=== PATIENT | male | born 1985 | race Caucasian/White ===

== ENCOUNTER 2016-09-08 21:25 | Emergency (ER) | payer OTHER ==
[~2016-09-08] VITALS: Ht 170.2 cm; Wt 65.0 kg
[~2016-09-08 21:25] MED LIST: IBUP600 PO; LEVA500T PO
[2016-09-08 21:45] VITALS: BP 126/69; PULSE 58; RESP 18; TEMP 98.6; O2SAT 99
== END 2016-09-08 23:27 | disposition left against medical advice (07) ==
LOC: PHED 21:25
DX: M54.2 Cervicalgia (principal)
CPT/HCPCS: 99281

== ENCOUNTER 2016-09-10 18:45 | Emergency (ER) | payer OTHER ==
[~2016-09-10] VITALS: Ht 170.2 cm; Wt 66.7 kg
[2016-09-10 19:01] VITALS: BP 124/75; PULSE 61; RESP 16; TEMP 98; O2SAT 99
[2016-09-10] MEDS ORDERED: ORPHENADRINE INJ 60 MG/2 ML AMP IM ONE (20:00)
[2016-09-10] MEDS ORDERED: DEXAMETHASONE SOD PHOS 20 MG/5 ML VIAL IM ONE (20:00)
[2016-09-10] MEDS ORDERED: KETOROLAC TROMETHAMINE 60 MG/2 ML (IM) VIAL IM ONE (20:00)
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
[2016-09-10] MEDS ORDERED: CYCL1TAB29 PO (21:12)
[2016-09-10] MEDS ORDERED: IBUP800T23 PO (21:12)
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
[2016-09-10 21:29] VITALS: BP 110/67
== END 2016-09-10 21:30 | disposition home or self-care (01) ==
LOC: PHED 18:45 → PHEFT 21:30
DX: S46.912A Strain of unspecified muscle, fascia and tendon at shoulder and upper arm level, left arm, initial encounter (principal); V49.49XA Driver injured in collision with other motor vehicles in traffic accident, initial encounter; Y92.410 Unspecified street and highway as the place of occurrence of the external cause; F17.210 Nicotine dependence, cigarettes, uncomplicated
CPT/HCPCS: 73030; 96372; 99283; J1100; J1885; J2360

== ENCOUNTER 2018-02-04 15:47 | Inpatient (IN) | payer SELFPAY ==
[~2018-02-04] VITALS: Ht 170.2 cm; Wt 70.0 kg
[~2018-02-04 15:47] MED LIST changes: +CYCL10TA PO; +IBUP1TAB7 PO
[2018-02-04 16:11] VITALS: BP 135/82; PULSE 76; RESP 12; TEMP 98; O2SAT 100
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
[2018-02-04 16:30] VITALS: O2SAT 100
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
[2018-02-04] MEDS ORDERED: PROPOFOL 200 MG/20 ML AMP IV ONE ×2 (16:45→17:45)
[2018-02-04 17:00] VITALS: O2SAT 100
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
[2018-02-04] MEDS ORDERED: ACETAMINOPHEN 1000 MG/100 ML 100 ML IV ONE (17:30)
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
--- NOTE | 2018-02-04 17:48 | RADRPT ---
EXAM DATE: 02/04/2018 5:44 PM EDT AGE/SEX: 32 years / Male INDICATIONS: Pain in ankle from fall. CLINICAL DATA: This is the patient's initial encounter. Patient reports that signs and symptoms have been present for 1 day and indicates a pain score of 10/10. MEDICAL/SURGICAL HISTORY: None. None. COMPARISON: [facility], ANKLE RIGHT COMPLETE ([id number]), 02/04/2018. . FINDINGS: 3 views of the right ankle were performed with splint material in place. Again seen is a fracture inv olving the distal fibular metaphysis. There is medial displacement of the tibia and fibula relative t o the talar dome. The appearance is unchanged from the prior exam. No tibial fracture appreciated. CONCLUSION: Unchanged dislocation at the ankle joint with acute distal fibular fracture. Electronically signed by: Naveen Curran MD 02/04/2018 5:47 PM EDT
[2018-02-04] MEDS ORDERED: ACETAMINOPHEN 325 MG TAB PO PRN (18:00)
[2018-02-04] MEDS ORDERED: NALOXONE HCL 0.4 MG/ML AMP IV PUSH PRN (18:00)
[2018-02-04] MEDS ORDERED: METOCLOPRAMIDE HCL 10 MG/2 ML VIAL IV PUSH PRN (18:00)
[2018-02-04] MEDS ORDERED: SODIUM CHLORIDE 0.9% FLUSH 10 ML FLUSH IV FLUSH PRN (18:00)
[2018-02-04] MEDS ORDERED: MAGNESIUM HYDROXIDE SUSP 30 ML CUP PO PRN (18:00)
[2018-02-04] MEDS ORDERED: KETOROLAC TROMETHAMINE 30 MG/ML (IVP) VIAL IV PUSH ONE ×2 (18:15→21:15)
[2018-02-04 18:38] LABS: AUTOMATED NEUTROPHIL # 9.4 TH/MM3 (1.8-7.7); BASOPHIL % 0.2 % (0.0-2.0); EOSINOPHIL # 0.1 TH/MM3 (0-0.4); EOSINOPHIL % 0.6 % (0.0-4.0); HEMATOCRIT 43.1 % (39.0-51.0); HEMOGLOBIN 14.7 GM/DL (13.0-17.0); LYMPHOCYTE # 1.5 TH/MM3 (1.0-4.8); MEAN CELL VOLUME 85.2 FL (80.0-100.0); MEAN CORPUSCULAR HGB CONC 34.1 % (32.0-36.0); MEAN PLATELET VOLUME 8.1 FL (7.0-11.0); MONO % 4.2 % (0.0-8.0); MONOCYTE # 0.5 TH/MM3 (0-0.9); PLATELET COUNT 255 TH/MM3 (150-450); RED BLOOD COUNT 5.06 MIL/MM3 (4.50-5.90); RED CELL DISTRIBUTION WIDTH 14.2 % (11.6-17.2); WHITE BLOOD COUNT 11.5 TH/MM3 (4.0-11.0)
[2018-02-04 18:51] LABS: PROTHROMBIN TIME - PATIENT 10.4 SEC (9.8-11.6)
[2018-02-04 19:08] LABS: BICARBONATE 24.7 MEQ/L (21.0-32.0); CALCIUM 8.7 MG/DL (8.5-10.1); CREATININE 0.99 MG/DL (0.60-1.30)
[2018-02-04 20:20] VITALS: BP 152/88; PULSE 73; RESP 20; TEMP 98; O2SAT 98
[2018-02-04] MEDS: REMOVE OLD PATCH T-DERMAL SCH (21:00)
[2018-02-04] MEDS ORDERED: SODIUM CHLORID 0.9% 500 ML IV PRN (21:00)
[2018-02-04] MEDS: SODIUM CHLORIDE 0.9% FLUSH 10 ML FLUSH IV FLUSH SCH (21:00)
[2018-02-04] MEDS ORDERED: METOPROLOL TARTRATE 25 MG TAB PO PRN (21:00)
[2018-02-04] MEDS ORDERED: CHLORHEXIDINE GLUCONATE 2 % 1 PACK (2 CLOTHS) TOPICAL PRN (21:00)
[2018-02-04] MEDS ORDERED: POVIDONE IODINE 5% (ANTISEPSIS KIT) 4 APPLICATIONS EACH NARE PRN (21:00)
[2018-02-04] MEDS ORDERED: LACTATED RINGER'S 1000 ML IV PRN (21:00)
[2018-02-04] MEDS: MELATONIN 5 MG TAB PO PRN (23:55)
[2018-02-04] MEDS: diphenhydrAMINE HCL 25 MG CAP PO PRN (23:55)
[2018-02-04] MEDS: traMADol HCL 50 MG TAB PO PRN (23:55)
[2018-02-04] MEDS: ACETAMINOPHEN 1000 MG/100 ML 100 ML IV SCH (23:55)
[2018-02-05 00:05] VITALS: BP 127/79; PULSE 54; RESP 20; TEMP 98.2; O2SAT 98
[2018-02-05 04:00] VITALS: BP 119/68; PULSE 51; RESP 20; TEMP 97.8; O2SAT 98
[2018-02-05] MEDS: traMADol HCL 50 MG TAB PO PRN ×3 (04:24→21:54)
[2018-02-05] MEDS: ACETAMINOPHEN 1000 MG/100 ML 100 ML IV SCH ×3 (04:24→17:22)
[2018-02-05] MEDS ORDERED: LIDOCAINE HCL 2% 20 ML VIAL ONE ×2 (06:42→07:03)
[2018-02-05] MEDS ORDERED: KETAMINE HCL 500 MG/10 ML VIAL ONE (06:43)
[2018-02-05] MEDS ORDERED: PROPOFOL 500 MG/50 ML INJ 100 ML ONE (06:44)
[2018-02-05] MEDS ORDERED: DEXMEDETOMIDINE HCL 200 MCG/2 ML VIAL ONE (06:44)
[2018-02-05] MEDS ORDERED: AMMONIA AROMATIC INHALANT 0.33 ML ONE (06:58)
[2018-02-05] MEDS ORDERED: BUPIVACAINE HCL PF 0.5% 30 ML VIAL ONE (06:58)
[2018-02-05] MEDS ORDERED: GENTAMICIN SULFATE 80 MG/2 ML VIAL ONE (06:59)
[2018-02-05] MEDS ORDERED: ceFAZolin INJ 1,000 MG VIAL ONE (07:00)
[2018-02-05] MEDS ORDERED: VANCOMYCIN HCL 1000 MG VIAL ONE (07:55)
[2018-02-05] MEDS ORDERED: SODIUM CHLOR 0.9% 250 ML INJ 250 ML ONE (07:55)
[2018-02-05] MEDS ORDERED: ceFAZolin 2 GM PREMIX 50 ML ONE (07:55)
[2018-02-05] MEDS ORDERED: diphenhydrAMINE HCL 25 MG CAP PO PRN (08:15)
[2018-02-05] MEDS ORDERED: PHARMACY INFORMATION XX ONE (08:15)
[2018-02-05] MEDS ORDERED: Post-op Orders (for Pharmacy) XX ONE (08:15)
[2018-02-05] MEDS ORDERED: NURSING INFORMATION XX PRN (08:15)
[2018-02-05] MEDS ORDERED: ASPI81CH6 CHEW (08:25)
[2018-02-05] MEDS: DOCUSATE SODIUM 50 MG/SENNA 8.6 MG TAB PO SCH ×2 (09:00→20:50)
[2018-02-05] MEDS: MULTIVITAMINS/MINERALS THERAPEUTIC TAB PO SCH (09:00)
[2018-02-05] MEDS: NICOTINE 21 MG/24 HR PATCH T-DERMAL SCH (09:00)
[2018-02-05] MEDS: SODIUM CHLORIDE 0.9% FLUSH 10 ML FLUSH IV FLUSH SCH ×2 (09:00→20:50)
--- NOTE | 2018-02-05 10:02 | RADRPT ---
EXAM DATE: 02/05/2018 9:54 AM EDT AGE/SEX: 32 years / Male INDICATIONS: ORIF right ankle. CLINICAL DATA: This is the patient's initial encounter. Patient reports that signs and symptoms have been present for 1 day and indicates a pain score of Nonresponsive. MEDICAL/SURGICAL HISTORY: Non-responsive. Non-responsive. Abdominal aortic aneurysm repair. COMPARISON: [facility], ANKLE RIGHT COMPLETE ([id number]), 02/04/2018. . FINDINGS: 2 spot images obtained in the operating room during a procedure demonstrates placement of a lateral f ibular sideplate with multiple interlocking screws and 2 syndesmotic screws. A single lag screw is pr esent. Ankle mortise is intact and there is improved alignment. CONCLUSION: Improved alignment following right ankle ORIF. Electronically signed by: Ryland Rodgers MD 02/05/2018 10:01 AM EDT
[2018-02-05] MEDS ORDERED: MIDAZOLAM HCL 2 MG/2 ML VIAL ONE (10:15)
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
[2018-02-05] MEDS: DEXT 5%-NACL 0.45% 1000 ML INJ 1,000 ML IV SCH ×2 (10:20→19:00)
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
[2018-02-05] MEDS ORDERED: GLYCOPYRROLATE 0.2 MG/ML VIAL ONE (11:01)
[2018-02-05] MEDS ORDERED: GLYCOPYRROLATE 0.2 MG/ML VIAL IV ONE (11:30)
[2018-02-05] MEDS ORDERED: DO NOT ADM ANY ANTICOAGULANT DRUGS PRN (11:45)
[2018-02-05 12:00] VITALS: BP 118/71; PULSE 75; RESP 18; TEMP 97; O2SAT 96
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
[2018-02-05] MEDS ORDERED: LIDOCAINE HCL 1% PF 5 ML SYRINGE OTHER ONE (14:35)
[2018-02-05] MEDS ORDERED: ROCURONIUM INJ 50 MG/5 ML SYRINGE IV PUSH ONE (14:35)
[2018-02-05] MEDS ORDERED: DEXAMETHASONE SOD PHOS 4 MG/ML VIAL IV ONE (14:35)
[2018-02-05] MEDS ORDERED: NEOSTIGMINE 5 MG/5 ML SYRINGE IV PUSH ONE (14:35)
[2018-02-05] MEDS ORDERED: ePHEDrine/NS 25 MG/5 ML SYRINGE IV ONE (14:35)
[2018-02-05] MEDS ORDERED: ONDANSETRON HCL 4 MG/2 ML VIAL IV PUSH ONE (14:35)
[2018-02-05] MEDS ORDERED: PROPOFOL 200 MG/20 ML AMP IV ONE (14:35)
[2018-02-05] MEDS ORDERED: KETOROLAC TROMETHAMINE 30 MG/ML (IVP) VIAL IV PUSH ONE ×2 (14:35→21:15)
[2018-02-05] MEDS ORDERED: GLYCOPYRROLATE 1 MG/5 ML SYRINGE IV PUSH ONE (14:35)
[2018-02-05 16:07] VITALS: BP 111/62; PULSE 85; RESP 17; TEMP 98.2; O2SAT 98
[2018-02-05 20:00] VITALS: BP 123/57; PULSE 72; RESP 17; TEMP 98.5; O2SAT 98
[2018-02-05] MEDS: REMOVE OLD PATCH T-DERMAL SCH (20:52)
[2018-02-06] MEDS ORDERED: ACETAMINOPHEN 325 MG TAB PO PRN
[2018-02-06 00:01] VITALS: BP 124/70; PULSE 77; RESP 18; TEMP 98.4; O2SAT 98
[2018-02-06] MEDS: diphenhydrAMINE HCL 25 MG CAP PO PRN (01:29)
[2018-02-06] MEDS: MELATONIN 5 MG TAB PO PRN (01:29)
[2018-02-06] MEDS: traMADol HCL 50 MG TAB PO PRN ×2 (01:32→09:09)
[2018-02-06 04:00] VITALS: BP 111/57; PULSE 61; RESP 17; TEMP 98; O2SAT 98
[2018-02-06] MEDS: DEXT 5%-NACL 0.45% 1000 ML INJ 1,000 ML IV SCH (04:55)
[2018-02-06 05:59] LABS: HEMATOCRIT 39.4 % (39.0-51.0); HEMOGLOBIN 13.4 GM/DL (13.0-17.0)
[2018-02-06 08:04] VITALS: BP 102/55; PULSE 82; RESP 17; TEMP 98.4; O2SAT 98
[2018-02-06] MEDS: DOCUSATE SODIUM 50 MG/SENNA 8.6 MG TAB PO SCH (09:00)
[2018-02-06] MEDS: MULTIVITAMINS/MINERALS THERAPEUTIC TAB PO SCH (09:09)
[2018-02-06] MEDS: NICOTINE 21 MG/24 HR PATCH T-DERMAL SCH (09:13)
[2018-02-06] MEDS: SODIUM CHLORIDE 0.9% FLUSH 10 ML FLUSH IV FLUSH SCH (09:14)
--- NOTE | 2018-02-06 10:30 | PD.ORT.PN ---
Subjective Post Op Day #: 1 Subjective Remarks painful but tolerable Objective Vitals Vital Signs Date Time Temp Pulse Resp B/P (MAP) Pulse Ox O2 Delivery O2 Flow Rate FiO2 02/06/18 10:09 18 02/06/18 08:04 98.4 82 17 102/55 (71) 98 02/06/18 04:00 98.0 61 17 111/57 (75) 98 02/06/18 00:01 98.4 77 18 124/70 (88) 98 02/05/18 22:23 Room Air 02/05/18 22:02 18 02/05/18 20:00 98.5 72 17 123/57 (79) 98 02/05/18 17:52 18 02/05/18 16:07 98.2 85 17 111/62 (78) 98 02/05/18 12:00 97.0 75 18 118/71 (87) 96 02/05/18 11:10 68 22 99 Room Air 02/05/18 11:00 97.9 50 23 99/59 (72) 99 Room Air 02/05/18 10:45 55 20 110/68 (82) 100 Room Air 02/05/18 10:30 47 18 99/59 (72) 100 Nasal Cannula 2 I/O 02/05/18 02/05/18 02/05/18 02/06/18 02/06/18 02/06/18 07:00 15:00 23:00 07:00 15:00 23:00 Intake Total 620 ml 107 ml 960 ml Output Total 50 ml 900 ml Balance 620 ml 57 ml 60 ml Intake Oral 420 ml 10 ml 960 ml IV Total 200 ml 97 ml Output Urine Total 0 ml 900 ml Estimated Blood Loss 50 ml # Voids 1 0 3 Result Diagram: 02/06/18 0507 02/04/18 1750 Objective Remarks in bed, nad splint intact, leg elevate nvi sensation intact Assessment & Plan Ortho Post Op Day #: 1 Problem List: Assessment and Plan s/p ORIF R ankle with repair of syndesmosis NWB maintain splint asa 81 f/up dr. reyes 2 weeks ortho stable for d/c Daryl Santo Feb 06, 2018 10:30
[2018-02-06 12:17] VITALS: BP 127/75; PULSE 86; RESP 18; TEMP 98.7; O2SAT 98
[2018-02-06] MEDS ORDERED: TRAM50 PO (13:25)
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
[2018-02-06] MEDS ORDERED: PERC5TAB12 PO (21:57)
== END 2018-02-06 14:36 | disposition home or self-care (01) | DRG 493 ==
LOC: HOR 15:47 → NEDA 17:35 → N06A 19:25
PROVIDERS: ADMIT Hospitalist; ATTEND Hospitalist
PROC: 0QSJXZZ Reposition Right Fibula, External Approach (ICD-10-PCS; 2018-02-04)
PROC: 0QSJ04Z Reposition Right Fibula with Internal Fixation Device, Open Approach (ICD-10-PCS; 2018-02-05)
PROC: 0SSF04Z Reposition Right Ankle Joint with Internal Fixation Device, Open Approach (ICD-10-PCS; 2018-02-05)
PROC: 3E0T3BZ Introduction of Anesthetic Agent into Peripheral Nerves and Plexi, Percutaneous Approach (ICD-10-PCS; 2018-02-05)
PROC: 0QSG04Z Reposition Right Tibia with Internal Fixation Device, Open Approach (ICD-10-PCS; principal; 2018-02-05 07:57)
DX: S82.841A Displaced bimalleolar fracture of right lower leg, initial encounter for closed fracture (principal); F11.20 Opioid dependence, uncomplicated; S93.04XA Dislocation of right ankle joint, initial encounter; S93.431A Sprain of tibiofibular ligament of right ankle, initial encounter; F17.210 Nicotine dependence, cigarettes, uncomplicated; Y93.39 Activity, other involving climbing, rappelling and jumping off
CPT/HCPCS: 73600; 73610; 80048; 85014; 85018; 85025; 85610; 85730; 94150; C1713; E0113; J0131; J0690; J1100; J1580; J1885; J2250; J2405; J2710; J3370; J7050; J7120

== ENCOUNTER 2018-02-06 19:23 | Emergency (ER) | payer SELFPAY ==
[~2018-02-06 19:23] MED LIST changes: +ASPI81CH6 CHEW; -CYCL10TA PO; -IBUP1TAB7 PO; -IBUP600 PO; -LEVA500T PO; +TRAM50 PO
[2018-02-06 19:24] VITALS: BP 134/82; PULSE 75; RESP 18; TEMP 98.7; O2SAT 99
--- NOTE | 2018-02-06 20:58 | PD ---
HPI Chief Complaint: Pain: Acute or Chronic Time Seen by Provider: 20:45 Travel History International Travel<30 days: No Contact w/Intl Traveler<30days: No Traveled to known affect area: No History of Present Illness HPI This is a 32-year-old male who just underwent open reduction internal fixation of right ankle fracture. He was discharged today. Orthopedist Dr. Yo. He reports that his nerve block has worn off and he is now complaining of right ankle pain. Pain is throbbing, constant, worse with movement. Denies any new trauma. He is complaining of some lightheadedness and nausea as well which he believes is secondary to the pain. He got a prescription for Ultram on discharge but the pharmacy was closed and he was unable to get it filled. He does not want any narcotics because he lives in a sober living house he reports that he will get kicked out if he uses any narcotics. He used ibuprofen prior to arrival. He has no other complaints. 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 SKIN: Warm and dry. HEAD: Atraumatic. Normocephalic. EYES: Pupils equal and round. No scleral icterus. No injection or drainage. ENT: No nasal bleeding or discharge. Mucous membranes pink and moist. NECK: Trachea midline. No JVD. CARDIOVASCULAR: Regular rate and rhythm. No murmur appreciated. RESPIRATORY: No accessory muscle use. Clear to auscultation. Breath sounds equal bilaterally. GASTROINTESTINAL: Abdomen soft, non-tender, nondistended. Hepatic and splenic margins not palpable. MUSCULOSKELETAL: No obvious deformities. Right lower extremity Pereyra splint is in place. NEUROLOGICAL: Awake and alert. No obvious cranial nerve deficits. Motor grossly within normal limits. Normal speech. Data Data Last Documented VS Vital Signs Date Time Temp Pulse Resp B/P (MAP) Pulse Ox O2 Delivery O2 Flow Rate FiO2 02/06/18 19:24 98.7 75 18 134/82 (99) 99 Orders Orders Complete Blood Count With Diff (02/06/18 20:53) Basic Metabolic Panel (Bmp) (02/06/18 20:53) Magnesium (Mg) (02/06/18 20:53) Electrocardiogram (02/06/18 ) Acetaminophen 1000 Mg/100 Ml (Ofirmev 10 (02/06/18 21:00) Splint Or Brace Apply/Monitor (02/06/18 21:13) Morphine Inj (Morphine Inj) (02/06/18 22:00) Oxycodone (Roxicodone) (02/06/18 22:00) Ed Discharge Order (02/06/18 21:58) Labs Laboratory Tests Test 02/06/18 21:20 White Blood Count 11.9 TH/MM3 Red Blood Count 4.81 MIL/MM3 Hemoglobin 13.9 GM/DL Hematocrit 41.2 % Mean Corpuscular Volume 85.6 FL Mean Corpuscular Hemoglobin 29.0 PG Mean Corpuscular Hemoglobin Concent 33.9 % Red Cell Distribution Width 14.2 % Platelet Count 229 TH/MM3 Mean Platelet Volume 8.2 FL Neutrophils (%) (Auto) 74.2 % Lymphocytes (%) (Auto) 20.9 % Monocytes (%) (Auto) 4.5 % Eosinophils (%) (Auto) 0.3 % Basophils (%) (Auto) 0.1 % Neutrophils # (Auto) 8.8 TH/MM3 Lymphocytes # (Auto) 2.5 TH/MM3 Monocytes # (Auto) 0.5 TH/MM3 Eosinophils # (Auto) 0.0 TH/MM3 Basophils # (Auto) 0.0 TH/MM3 CBC Comment DIFF FINAL Differential Comment Blood Urea Nitrogen 8 MG/DL Creatinine 1.02 MG/DL Random Glucose 87 MG/DL Calcium Level 9.1 MG/DL Magnesium Level 2.0 MG/DL Sodium Level 144 MEQ/L Potassium Level 3.8 MEQ/L Chloride Level 108 MEQ/L Carbon Dioxide Level 26.3 MEQ/L Anion Gap 10 MEQ/L Estimat Glomerular Filtration Rate 84 ML/MIN MDM Medical Decision Making Medical Screen Exam Complete: Yes Emergency Medical Condition: Yes Medical Record Reviewed: Yes Differential Diagnosis Postoperative pain versus compartment syndrome versus DVT versus poor fitting splint Narrative Course The patient will be given IV acetaminophen. He took 800 mg of ibuprofen prior to arrival. The patient's right lower extremity sugar tong splint was removed. Compartments of the right lower extremity are soft. There is no pitting edema. No evidence of compartment syndrome or DVT. The electrical project manager of the patient's living community as arrived and I discussed with him as well as the patient an ideal plan. He is willing to allow the patient to take stronger pain medication over the next few days at home given the current injury. He will be given a dose of morphine here and then he will be discharged with a 3 day course of Percocet. Recommended that he follow-up with his orthopedist this week. Diagnosis Primary Impression: Postoperative pain Referrals: Daryl Yo MD Additional Instructions: Pain medication as needed. Nonweightbearing right lower extremity. Elevate as much as possible. Follow-up with Dr. Yo this week. Return for any emergent medical conditions. Med/Other Pt SpecificInfo: Prescription(s) given, Orthopedic Instructions Scripts Oxycodone-Acetaminophen (Percocet) 5-325 mg Tab 1 TAB PO Q4HR Y for PAIN, #16 TAB 0 Refills Prov: Tucker Gooden MD 02/06/18 Disposition: 01 DISCHARGE HOME Condition: Stable Luis Alberto Aranda Feb 06, 2018 20:58
[2018-02-06] MEDS ORDERED: ACETAMINOPHEN 1000 MG/100 ML 100 ML IV ONE (21:00)
[2018-02-06 21:27] LABS: AUTOMATED NEUTROPHIL # 8.8 TH/MM3 (1.8-7.7); BASOPHIL % 0.1 % (0.0-2.0); EOSINOPHIL % 0.3 % (0.0-4.0); HEMATOCRIT 41.2 % (39.0-51.0); HEMOGLOBIN 13.9 GM/DL (13.0-17.0); LYMPH % 20.9 % (9.0-44.0); LYMPHOCYTE # 2.5 TH/MM3 (1.0-4.8); MEAN CELL VOLUME 85.6 FL (80.0-100.0); MEAN CORPUSCULAR HGB CONC 33.9 % (32.0-36.0); MEAN PLATELET VOLUME 8.2 FL (7.0-11.0); MONO % 4.5 % (0.0-8.0); MONOCYTE # 0.5 TH/MM3 (0-0.9); NEUT % 74.2 % (16.0-70.0); PLATELET COUNT 229 TH/MM3 (150-450); RED BLOOD COUNT 4.81 MIL/MM3 (4.50-5.90); RED CELL DISTRIBUTION WIDTH 14.2 % (11.6-17.2); WHITE BLOOD COUNT 11.9 TH/MM3 (4.0-11.0)
[2018-02-06 21:48] LABS: BICARBONATE 26.3 MEQ/L (21.0-32.0); CALCIUM 9.1 MG/DL (8.5-10.1); CREATININE 1.02 MG/DL (0.60-1.30)
[2018-02-06] MEDS ORDERED: PERC5TAB12 PO (21:57)
[2018-02-06] MEDS ORDERED: MORPHINE SULFATE 4 MG/ML INJ IV PUSH ONE (22:00)
--- NOTE | 2018-02-07 23:03 | EKG ---
Date Performed: 02/06/2018 Time Performed: 22:31:20 PTAGE: 32 years EKG: Sinus rhythm WITH SINUS ARRHYTHMIA NONSPECIFIC ST & T-WAVE ABNORMALITY BORDERLINE ECG PREVIOUS TRACING : 03/13/2016 21.37 DOCTOR: Adrián Nieves Interpretating Date/Time 02/07/2018 22:56:04
== END 2018-02-06 22:45 | disposition home or self-care (01) ==
LOC: NEPD 19:23
DX: G89.18 Other acute postprocedural pain (principal); M25.571 Pain in right ankle and joints of right foot; R94.31 Abnormal electrocardiogram [ECG] [EKG]; M19.90 Unspecified osteoarthritis, unspecified site; Z96.698 Presence of other orthopedic joint implants
CPT/HCPCS: 29515; 80048; 83735; 85025; 93005; 96374; 96375; 99284; J0131; J2270